=== PATIENT | male | born 1930 | race Caucasian/White ===

== ENCOUNTER → 2017-12-20 | Outpatient (CLI) | payer MEDICARE ==
[~2017-12-20] MED LIST: AEC81 PO; CARV6.25 PO; IOPAMIDOL-370 100 ML VIAL IV ONE; LOSA25TA16 PO; MULT1TAB70 PO
== END | disposition home or self-care (01) ==
LOC: OIH 08:01
PROVIDERS: ATTEND Internal Medicine Cardiovascular Disease
DX: N28.1 Cyst of kidney, acquired (principal); M51.36 Other intervertebral disc degeneration, lumbar region; I10 Essential (primary) hypertension; E78.5 Hyperlipidemia, unspecified
CPT/HCPCS: 74174; Q9967